=== PATIENT | female | born 1960 | race Caucasian/White ===

== ENCOUNTER → 2016-07-11 14:00 | Emergency (ER) | payer OTHER ==
[~2016-07-11 14:00] MED LIST: FLEXERIL5 MG PO; GLUCPH PO; LOFIB160 PO; LOTE20 PO; NEUR300 PO; NORV5 PO; PAX20 PO; PERCOCET1 TA3 PO; PR25 PO; PRILO PO; T3 PO; V5 PO; ZOCOR40 PO
== END | disposition home or self-care (01) ==
LOC: ER 14:00
DX: S39.012A Strain of muscle, fascia and tendon of lower back, initial encounter (principal); I10 Essential (primary) hypertension; K21.9 Gastro-esophageal reflux disease without esophagitis; E11.9 Type 2 diabetes mellitus without complications; Z90.710 Acquired absence of both cervix and uterus; Z88.1 Allergy status to other antibiotic agents; Z88.2 Allergy status to sulfonamides; Z79.84 Long term (current) use of oral hypoglycemic drugs; Z79.899 Other long term (current) drug therapy; W10.9XXA Fall (on) (from) unspecified stairs and steps, initial encounter
CPT/HCPCS: 72072; 72100; 96372; 99284; J1170